=== PATIENT | male | born 1990 | race Caucasian/White ===

== ENCOUNTER 2019-02-08 08:22 | Emergency (ER) | payer BC, OTHER ==
[2019-02-08] MEDS ORDERED: Tetracaine HCl/PF 0.5% 4 ML Bottle ONE (08:32)
[2019-02-08] MEDS ORDERED: Tetracaine HCl/PF 0.5% 4 ML Bottle EYELF ONE (08:38)
--- NOTE | 2019-02-08 08:38 | EDM.PDOC ---
ED HPI GENERAL MEDICAL PROBLEM - General Chief Complaint: Eye Problems Stated Complaint: EYE COMPLAINT Time Seen by Provider: 02/08/19 08:28 - History of Present Illness INITIAL COMMENTS - FREE TEXT/NARRATIVE: HISTORY AND PHYSICAL: History of present illness: Patient's 28-year-old male presents with concern of request for medical screening exam for possible foreign body in his left eye 2 years he's been seen by carding machine feeder and told there is no foreign bodies he states he's old foreign-body is out of his eyes subsequent to this. No visual acuity complaints Review of systems: As per history of present illness and below otherwise all systems reviewed and negative. Past medical history: As per history of present illness and as reviewed below otherwise noncontributory. Surgical history: As per history of present illness and as reviewed below otherwise noncontributory. Social history: No reported history of drug or alcohol abuse. Family history: As per history of present illness and as reviewed below otherwise noncontributory. Physical exam: HEENT: Atraumatic, normocephalic, pupils reactive, negative for conjunctival pallor or scleral icterus, mucous membranes moist, throat clear, neck supple, nontender, trachea midline. Foreign body search including lid eversion was negative anterior chambers clear corneal staining is negative Lungs: Clear to auscultation, breath sounds equal bilaterally, chest nontender. Heart: S1S2, regular, negative for clicks, rubs, or JVD. Abdomen: Soft, nondistended, nontender. Negative for masses or hepatosplenomegaly. Negative for costovertebral tenderness. Pelvis: Stable nontender. Genitourinary: Deferred. Rectal: Deferred. Extremities: Atraumatic, negative for cords or calf pain. Neurovascular unremarkable. Neuro: Awake, alert, oriented. Cranial nerves II through XII unremarkable. Cerebellum unremarkable. Motor and sensory unremarkable throughout. Exam nonfocal. Diagnostics: Corneal Staining Therapeutics: Irrigation left eye Impression: #1 medical screening exam Definitive disposition and diagnosis as appropriate pending reevaluation and review of above. ED ROS GENERAL - Review of Systems Review Of Systems: ROS reveals no pertinent complaints other than HPI. ED EXAM GENERAL W FULL EYE - Physical Exam Exam: See Below (See dictation) Course - Orders/Labs/Meds Meds: Medications Discontinued Medications Generic Name Dose Route Start Last Admin Trade Name Freq PRN Reason Stop Dose Admin Tetracaine HCl Confirm 02/08/19 08:32 Tetracaine 0.5% Steri-Unit Rubina Administered 02/08/19 08:33 Dose 4 ml .ROUTE .STK-MED ONE Departure - Departure Time of Disposition: 08:37 Disposition: Home, Self-Care 01 Condition: Good Clinical Impression: Encounter for medical screening examination - Discharge Information Referrals: PCP,Unknown [Primary Care Provider] - Additional Instructions: The following information is given to patients seen in the emergency department who are being discharged to home. This information is to outline your options for follow-up care. We provide all patients seen in our emergency department with a follow-up referral. The need for follow-up, as well as the timing and circumstances, are variable depending upon the specifics of your emergency department visit. If you don't have a primary care physician on staff, we will provide you with a referral. We always advise you to contact your personal physician following an emergency department visit to inform them of the circumstance of the visit and for follow-up with them and/or the need for any referrals to a consulting specialist. The emergency department will also refer you to a specialist when appropriate. This referral assures that you have the opportunity for followup care with a specialist. All of these measure are taken in an effort to provide you with optimal care, which includes your followup. Under all circumstances we always encourage you to contact your private physician who remains a resource for coordinating your care. When calling for followup care, please make the office aware that this follow-up is from your recent emergency room visit. If for any reason you are refused follow-up, please contact the [facility] emergency department at and asked to speak to the emergency department charge nurse. [facility] [address] [place] [address] Follow-up ophthalmology clinic above call to schedule appointment return as needed as discussed
== END 2019-02-08 08:50 | disposition home or self-care (01) ==
LOC: MW.ED 08:22
DX: Z13.9 Encounter for screening, unspecified (principal)
CPT/HCPCS: 99282; 99283

== ENCOUNTER 2022-11-16 08:07 | Day surgery (SDC) | payer OTHER ==
[~2022-11-16 08:07] MED LIST: Lactated Ringers 1,000 ML IV SCH
[2022-11-16] MEDS ORDERED: Lidocaine 2% 5 ML SDV ONE (09:51)
[2022-11-16] MEDS ORDERED: Propofol 200 MG/20 ML SDV ONE ×3 (09:51→10:23)
== END 2022-11-16 11:40 | disposition home or self-care (01) ==
LOC: MW.SDS 08:07
PROVIDERS: ATTEND Surgery
DX: K22.89 Other specified disease of esophagus (principal); K44.9 Diaphragmatic hernia without obstruction or gangrene; K31.89 Other diseases of stomach and duodenum; K20.90 Esophagitis, unspecified without bleeding; G89.29 Other chronic pain; F41.1 Generalized anxiety disorder; F41.0 Panic disorder [episodic paroxysmal anxiety]; E66.9 Obesity, unspecified; Z79.899 Other long term (current) drug therapy; Z87.891 Personal history of nicotine dependence
CPT/HCPCS: 43239; 45380; J2704; J7120; 00813; J3490

== ENCOUNTER 2022-11-25 13:29 | Emergency (ER) | payer OTHER ==
[2022-11-25] MEDS ORDERED: Tetracaine HCl/PF 0.5% 4 ML Bottle EYERT STA (14:08)
== END 2022-11-25 15:27 | disposition home or self-care (01) ==
LOC: MW.ED 13:29
DX: S05.02XA Injury of conjunctiva and corneal abrasion without foreign body, left eye, initial encounter (principal); K12.2 Cellulitis and abscess of mouth; H10.9 Unspecified conjunctivitis; B96.89 Other specified bacterial agents as the cause of diseases classified elsewhere
CPT/HCPCS: 87070; 99283; J3490